=== PATIENT | female | born 1990 | race African-American/Black ===

== ENCOUNTER 2017-08-27 21:31 | Emergency (ER) | payer MEDICARE, MEDICAID ==
[~2017-08-27] VITALS: Ht 152.4 cm; Wt 67.1 kg
[2017-08-27 21:40] VITALS: BP 122/85
[2017-08-27] MEDS ORDERED: Lidocaine 1% 10mg/ml/Epi 0.005mg/ml 30ml vial INJ ONE (22:00)
[2017-08-27] MEDS ORDERED: CEPHALEXIN500 MG ORAL (22:17)
[2017-08-27 22:35] VITALS: BP 0/0
--- NOTE | 2017-08-28 03:50 | Emergency Room Report ---
History of Present Illness General Chief Complaint: Skin Rash/Abscess Source: Patient Present Illness HPI Patient is a 27-year-old female presented after increased left arm pit swelling. Patient reported having recently had a difficulty with increased pain to her left armpit. patient had been noted to have increased pain. She denies any numbness or weakness to her extremity. She reported having had recently used razor to the area. She denies any fever. Allergies: Coded Allergies: No Known Allergies (Unverified , 08/27/17) Patient History Past Medical History: see triage record Now: No Reviewed Nursing Documentation: PMH: Agreed; PSxH: Agreed Nursing Documentation-PMH Past Medical History: No Stated History Review of Systems All Other Systems: negative except mentioned in HPI Physical Exam Vital Signs Date Time Temp Pulse Resp B/P (MAP) Pulse Ox O2 Delivery O2 Flow Rate FiO2 08/27/17 21:35 98.4 90 18 122/85 99 Room Air 98.4 General Appearance: well appearing, no apparent distress Head: normocephalic, atraumatic ENT: hearing grossly normal, normal voice Neck: full range of motion, supple Respiratory: chest non-tender, lungs clear, normal breath sounds, no respiratory distress, speaking full sentences Cardiovascular #1: normal peripheral pulses, regular rate, rhythm, no edema Gastrointestinal: normal bowel sounds, non tender, soft, no mass Musculoskeletal: back normal, digits/nails normal, gait/station normal, no calf tenderness Neurologic: normal inspection, alert, oriented x3, responsive, normal gait Psychiatric: mood/affect normal Skin: no rash Procedures Incision and Drainage Incision and Drainage : Consent: Verbal Blade Size: 11 I & D Procedure: betadine prep, sterile drapes applied, sterile dressing applied Wound Location: axilla Wound's Depth, Shape: superficial Wound Length (cm): 1 Wound Explored: clean Anesthesia: Lidocaine w/ Epi Volume Anesthetic (ccs): 2 Patient Tolerated: Well Complications: None Medical Decision Making Diagnostic Impression: Primary Impression: Abscess of axilla, left ER Course Patient presented for left underarm abscess. The differential diagnosis included wasn't limited to hidradenitis, infected lymph node, abscess, among others. Patient has a benign exam and does not appear to require any further imaging or laboratory testing at this time. The patient was consented for incision and drainage. The axillary abscess was drained approximately 3 mL's of purulent material. The patient tolerated well. Patient is advised to have wound checked in 2 days. She is given prescription for oral antibiotics. Last Vital Signs Date Time Temp Pulse Resp B/P (MAP) Pulse Ox O2 Delivery O2 Flow Rate FiO2 08/27/17 22:35 0/0 08/27/17 21:40 98.4 90 18 99 Room Air 98.4 Disposition: HOME, SELF-CARE Condition: Stable Scripts Cephalexin* (KEFLEX*) 500 Mg Capsule 500 MG ORAL EVERY 6 HOURS, #28 CAP Prov: Jose Portillo MD 08/27/17 Referrals: [facility],REFERR[facility] (PCP) Patient Instructions: Abscess Additional Instructions: wound recheck in 2-3 days. Return if any fever worsening swelling or other concerns. Jose Portillo MD Aug 28, 2017 03:50
== END 2017-08-27 22:35 | disposition home or self-care (01) ==
LOC: EMR 21:48
DX: L02.412 Cutaneous abscess of left axilla (principal)
CPT/HCPCS: 10060; 99283

== ENCOUNTER 2017-08-31 14:12 | Emergency (ER) | payer MEDICARE, MEDICAID ==
[~2017-08-31] VITALS: Ht 157.5 cm; Wt 63.5 kg
[~2017-08-31 14:12] MED LIST: CEPHALEXIN500 MG ORAL
[2017-08-31 14:26] VITALS: BP 118/77
[2017-08-31] MEDS ORDERED: TYLENOL EXTRA500 MG ORAL (14:38)
--- NOTE | 2017-08-31 14:39 | Emergency Room Report ---
History of Present Illness General Chief Complaint: Wound Recheck/Suture Removal Source: Patient Present Illness HPI 27 yo female patient presented ER for wound check of abscess under her left axilla. Reports was recently seen in ER 3 days ago and had I and D performed. Reports symptoms of improved since that time. Reports taking antibiotics. Also complains of small abscess formation under right axilla similar to left since that time. Denies drainage. Denies fever, chest pain, shortness of breath, intractable vomiting, red streaking. denies other symptoms. Allergies: Coded Allergies: No Known Allergies (Unverified , 08/27/17) Patient History Past Medical History: see triage record Last Menstrual Period: 08/30/17 Now: No : 2 Para: 2 Reviewed Nursing Documentation: PMH: Agreed; PSxH: Agreed Nursing Documentation-PMH Past Medical History: No Stated History Review of Systems All Other Systems: negative except mentioned in HPI Physical Exam Vital Signs Date Time Temp Pulse Resp B/P (MAP) Pulse Ox O2 Delivery O2 Flow Rate FiO2 08/31/17 14:15 98.2 91 16 118/77 98 Room Air 98.2 Sp02 EP Interpretation: reviewed, normal General Appearance: well appearing, no apparent distress, alert, GCS 15, non- toxic Head: normocephalic, atraumatic Eyes: bilateral eye normal inspection, bilateral eye PERRL Neck: full range of motion Respiratory: lungs clear, normal breath sounds, no rhonchi, no respiratory distress, no accessory muscle use, no wheezing, speaking full sentences Cardiovascular #1: regular rate, rhythm, no edema Musculoskeletal: back normal, digits/nails normal, gait/station normal, normal range of motion, non-tender Neurologic: alert, oriented x3, responsive, motor strength/tone normal, sensory intact Psychiatric: mood/affect normal Skin: other - Left axilla: 1 cm healing abscess, no drainage, no erythema, no signs of infection; right axilla: less than 1 cm indurated abscess, does not come to a point, no drainage Medical Decision Making PA Attestation Dr. Eddy is my supervising Physician whom patient management has been discussed with. Diagnostic Impression: Primary Impression: Encounter for wound re-check Additional Impression: Abscess of right axilla ER Course Pt. presents to the ED c/o abscess and requesting wound check. Ddx considered but are not limited to rash, cellulitis, abscess, sebaceous cyst , carbuncle, folliculitis. Does not require imaging at this time. Vital signs: are WNL, pt. is afebrile ED INTERVENTIONS: previous chart reviewed, abscess under left axilla appears to be healing well, no erythema, no active drainage, patient reports pain symptoms improving, no red streaking or systemic symptoms such as fever. Patient also reports new abscess under right axilla, indurated, no drainage, no red streaking. Does not believe I&D at this time would be beneficial. Take antibiotics as previously instructed, take Tylenol for pain symptoms. Apply warm compresses. Adding Bactrim for added coverage and to cover for MRSA. follow-up with primary care provider to discuss further treatment and management. Wound check in 2-3 days, return to ER if symptoms worsen. do not shave armpits during this time, may be contributing to infections. DISCHARGE: -Rx provided for Tylenol -Rx provided for Bactrim At this time pt. is stable for d/c to home. Patient is resting comfortably, in no acute distress, nontoxic appearing. Will provide printed patient care instructions and any necessary prescriptions. Care plan and follow up instructions have been discussed with the patient prior to discharge. Patient instructed to follow-up with primary care provider in 2 - 3 days for wound recheck. Patient questions asked and answered. Patient reports understanding and agreement to treatment plan. ER precautions given. Patient instructed to return to ER immediately for any new or worsening of symptoms including but not limited to fever, worsening of pain symptoms, worsening of erythema, red streaking. - Please note that this Emergency Department Report was dictated using [employer] ground crew supervisor technology software, occasionally this can lead to erroneous entry secondary to interpretation by the dictation equipment. Last Vital Signs Date Time Temp Pulse Resp B/P (MAP) Pulse Ox O2 Delivery O2 Flow Rate FiO2 08/31/17 14:26 98.2 89 16 118/77 98 Room Air 98.2 Disposition: HOME, SELF-CARE Condition: Stable Scripts Trimethoprim/Sulfamethoxazole 160/800* (BACTRIM DS TABLET*) 1 Each Tablet 1 TAB ORAL TWICE A DAY for 7 Days, #14 TAB Prov: Scooter Arboleda P.ACruz 08/31/17 Acetaminophen* (TYLENOL EXTRA STRENGTH*) 500 Mg Tablet 500 MG ORAL Q8H PRN for Prn Headache/Temp > 101, #30 TAB 0 Refills Prov: Scooter Arboleda 08/31/17 Patient Instructions: Abscess, [id number], Wound Check Additional Instructions: Followup with primary care provider in 3 -5 days. Take medications as directed. Continue taking medications as previously instructed. Avoid shaving armpits. Patient questions asked and answered. ER precautions given, patient instructed to return to ER immediately for any new or worsening of symptoms including but not limited to fever, shortness of breath, intractable vomiting, red streaking, worsening of redness and swelling at site of infection. Scooter Arboleda Aug 31, 2017 14:39
[2017-08-31] MEDS ORDERED: BACTRIM DS TAB1 EAC1 ORAL (14:40)
[2017-08-31 14:59] VITALS: BP 118/77
== END 2017-08-31 15:03 | disposition home or self-care (01) ==
LOC: EMR 14:37
DX: Z48.00 Encounter for change or removal of nonsurgical wound dressing (principal); L02.412 Cutaneous abscess of left axilla; L02.411 Cutaneous abscess of right axilla
CPT/HCPCS: 99284

== ENCOUNTER 2018-01-27 22:34 | Emergency (ER) | payer MEDICARE, MEDICAID ==
[~2018-01-27] VITALS: Ht 160 cm; Wt 59.9 kg
[~2018-01-27 22:34] MED LIST changes: +BACTRIM DS TAB1 EAC1 ORAL; +TYLENOL EXTRA500 MG ORAL
[2018-01-27 23:00] VITALS: BP 118/74
[2018-01-27] MEDS ORDERED: PHENAZOPYRIDIN200 MG ORAL (23:11)
[2018-01-27] MEDS ORDERED: CEPHALEXIN500 MG ORAL (23:11)
--- NOTE | 2018-01-27 23:12 | Emergency Room Report ---
History of Present Illness General Chief Complaint: Female Urogenital Problems Source: Patient Present Illness HPI Is a 27 year female with no cerumen past medical history. She presents with chief complaint of dysuria frequency and urgency. Onset today. No hematuria. Worse with urination. Pain is 7 out of 10. Localized the pelvic area. No upper back pain. Allergies: Coded Allergies: No Known Allergies (Unverified , 08/27/17) Patient History Past Medical History: none, see triage record, old chart reviewed Past Surgical History: none Pertinent Family History: none Social History: Denies: smoking Last Menstrual Period: 01/18/18 Now: No : 2 Para: 2 Immunizations: other Reviewed Nursing Documentation: PMH: Agreed; PSxH: Agreed Nursing Documentation-PMH Past Medical History: No History, Except For Hx Asthma: Yes Review of Systems Eye: Denies: eye pain, blurred vision ENT: Denies: ear pain, nose congestion, throat swelling Respiratory: Denies: cough, shortness of breath Cardiovascular: Denies: chest pain, palpitations Gastrointestinal: Denies: abdominal pain, diarrhea, nausea, vomiting Genitourinary: Reports: dysuria, frequency, pain, urgency Musculoskeletal: Denies: back pain, joint pain Skin: Denies: rash Neurological: Denies: headache, numbness Endocrine: Denies: increased thirst, increased urine Hematologic/Lymphatic: Denies: easy bruising All Other Systems: negative except mentioned in HPI Physical Exam Vital Signs Date Time Temp Pulse Resp B/P (MAP) Pulse Ox O2 Delivery O2 Flow Rate FiO2 01/27/18 22:42 97.9 91 15 118/74 98 Room Air vitals normal Sp02 EP Interpretation: reviewed, normal General Appearance: well appearing, no apparent distress, alert Head: normocephalic, atraumatic Eyes: bilateral eye PERRL, bilateral eye EOMI ENT: hearing grossly normal, normal pharynx Neck: full range of motion, supple, no meningismus Respiratory: chest non-tender, lungs clear, normal breath sounds Cardiovascular #1: regular rate, rhythm, no murmur Gastrointestinal: normal bowel sounds, non tender, no mass, no organomegaly, no bruit, non-distended Musculoskeletal: back normal, gait/station normal, normal range of motion Psychiatric: mood/affect normal Skin: warm/dry Medical Decision Making Diagnostic Impression: Primary Impression: UTI (urinary tract infection) Qualified Codes: N30.00 - Acute cystitis without hematuria ER Course Patient presents with symptom consistent with UTI. No pyelonephritis. Dose of antibiotics given here. Last Vital Signs Date Time Temp Pulse Resp B/P (MAP) Pulse Ox O2 Delivery O2 Flow Rate FiO2 01/27/18 22:42 97.9 91 15 118/74 98 Room Air Status: improved Disposition: HOME, SELF-CARE Condition: Stable Scripts Phenazopyridine Hcl* (PYRIDIUM*) 200 Mg Tablet 200 MG ORAL THREE TIMES A DAY, #6 TAB 0 Refills Prov: Forest Lucia MD 01/27/18 Cephalexin* (KEFLEX*) 500 Mg Capsule 500 MG ORAL TID, #21 CAP Prov: Forest Lucia MD 01/27/18 Patient Instructions: Urinary Tract Infection Additional Instructions: Follow-up with your Dr. in 2-3 days of not better. Return if worse. Forest Lucia MD Jan 27, 2018 23:12
[2018-01-27 23:15] VITALS: BP 123/75
[2018-01-27] MEDS ORDERED: Phenazopyridine 200mg tab ORAL ONE (23:15)
[2018-01-27] MEDS ORDERED: Cephalexin 500mg cap ORAL ONE (23:15)
== END 2018-01-27 23:15 | disposition home or self-care (01) ==
LOC: EMR 23:00
DX: N30.00 Acute cystitis without hematuria (principal)
CPT/HCPCS: 87086; 99283

== ENCOUNTER 2018-04-24 06:20 | Emergency (ER) | payer MEDICARE, MEDICAID ==
[~2018-04-24] VITALS: Ht 157.5 cm; Wt 62.1 kg
[~2018-04-24 06:20] MED LIST changes: +PHENAZOPYRIDIN200 MG ORAL
[2018-04-24 06:46] VITALS: BP 130/85
--- NOTE | 2018-04-24 06:46 | NUR ---
ED Nurse Note: Pt c/o R earache this morning, pain 10/10. Pt also c/o been sick 3 days,runny nose and headache. upon ERMD inspection, stated the ear seems to be clogged with ear wax causing pain. pt vital signs are stable. pt pupiles are round and reactive to light.
--- NOTE | 2018-04-24 06:58 | Emergency Room Report ---
History of Present Illness General Chief Complaint: Earache Source: Patient Present Illness HPI 27-year-old female comes ER with right ear pain for 1 day, she also reports sneezing rhinorrhea and bitemporal headache for the past 4 days. She has not tried any medication for any of her symptoms, she denies tinnitus, hearing loss , vision complaints, fevers, any other symptoms. Allergies: Coded Allergies: No Known Allergies (Unverified , 08/27/17) Patient History Past Medical History: see triage record Last Menstrual Period: now Now: No Reviewed Nursing Documentation: PMH: Agreed; PSxH: Agreed Nursing Documentation-PMH Hx Asthma: Yes Review of Systems All Other Systems: negative except mentioned in HPI Physical Exam Vital Signs Date Time Temp Pulse Resp B/P (MAP) Pulse Ox O2 Delivery O2 Flow Rate FiO2 04/24/18 06:39 98.2 90 18 130/85 98 Room Air Sp02 EP Interpretation: reviewed, normal General Appearance: no apparent distress, alert, non-toxic Head: normocephalic Eyes: bilateral eye normal inspection, bilateral eye PERRL, bilateral eye EOMI ENT: normal ENT inspection, hearing grossly normal, normal pharynx, no angioedema, normal voice, TMs + canals normal - R TM with mild erythema, no effusion, uvula midline, moist mucus membranes, nasal congestion, other - +pain with pulling on pinna Neck: normal inspection, full range of motion, supple, thyroid normal, no meningismus, no bony tend, supple/symm/no masses Respiratory: chest non-tender, lungs clear, normal breath sounds, chest symmetrical, palpation of chest normal Cardiovascular #1: normal peripheral pulses, regular rate, rhythm Cardiovascular #2: 2+ radial (R), 2+ radial (L) Gastrointestinal: normal inspection, non tender, soft, no mass, no guarding, no rebound Rectal: deferred Genitourinary: normal inspection, no CVA tenderness Musculoskeletal: back normal, gait/station normal, normal range of motion, non- tender, no calf tenderness Neurologic: alert, responsive, stallion keeper III-XII nml as tested, motor strength/tone normal, sensory intact, normal gait, speech normal Psychiatric: judgement/insight normal, memory normal, mood/affect normal Skin: normal color, no rash, warm/dry, normal turgor Lymphatic: no adenopathy Medical Decision Making Diagnostic Impression: Primary Impression: Earache, right Additional Impression: Otitis media ER Course Patient with signs and symptoms consistent with right-sided otitis media and probable sinus infection, will discharge with antibiotics, ibuprofen, PMD follow -up in 2-3 days Last Vital Signs Date Time Temp Pulse Resp B/P (MAP) Pulse Ox O2 Delivery O2 Flow Rate FiO2 04/24/18 06:46 98.2 79 18 130/85 98 Room Air Disposition: HOME, SELF-CARE Condition: Stable LETICIA SOLORZANO M.D Apr 24, 2018 06:58
[2018-04-24] MEDS ORDERED: Ketorolac 60mg Inj IM ONE (07:00)
[2018-04-24] MEDS ORDERED: AMOXICILLIN875 MG PO (07:00)
[2018-04-24] MEDS ORDERED: IBUPROFEN600 MG ORAL (07:00)
[2018-04-24 07:14] VITALS: BP 132/84
--- NOTE | 2018-04-24 07:16 | NUR ---
ED Nurse Note: Pt cleared by Health Care Provider for discharge. DC instructions/prescriptions given and explained to pt and verbalized understanding of teachings. All medical devices such as ID band removed. Pt AAO x4, ambulatory and left with all personal belongings. pt is instructed to follow up with primary MD as soon as possible. pt is insturcted to return and seek medical attention if reoccurance of symptoms. pt has left with all DC notes and has been able to teach back all instructions.
== END 2018-04-24 07:50 | disposition home or self-care (01) ==
LOC: EMR 07:35
DX: H66.91 Otitis media, unspecified, right ear (principal); J45.909 Unspecified asthma, uncomplicated
CPT/HCPCS: 96372; 99283

== ENCOUNTER 2018-06-25 19:51 | Emergency (ER) | payer MEDICARE, MEDICAID ==
[~2018-06-25] VITALS: Ht 160 cm; Wt 61.2 kg
[~2018-06-25 19:51] MED LIST changes: +AMOXICILLIN875 MG PO; +IBUPROFEN600 MG ORAL
[2018-06-25 20:30] VITALS: BP 121/75
--- NOTE | 2018-06-25 20:30 | NUR ---
ED Nurse Note: pt came to ed from home c/o brown vaginal discharge for 1 week after menstrual cycle
--- NOTE | 2018-06-25 20:57 | Emergency Room Report ---
History of Present Illness General Chief Complaint: Female Urogenital Problems Source: Patient Present Illness HPI Patient present with complaints of vaginal discharge Reports that just before her menstrual cycle started she had noticed some discharge purchased a 3 day Monistat She was using it during her menstrual cycle Reports that she had done better during her menstrual cycle however now noticed some increased discharge vaginally Denies any pelvic pain denies any abdominal pain Denies any vomiting denies any fevers or rash denies any recent sexual contact Allergies: Coded Allergies: No Known Allergies (Unverified , 08/27/17) Patient History Past Medical History: see triage record Pertinent Family History: none Last Menstrual Period: 06/18/18 Now: No Reviewed Nursing Documentation: PMH: Agreed; PSxH: Agreed Nursing Documentation-PMH Past Medical History: No Stated History Hx Asthma: Yes Review of Systems All Other Systems: negative except mentioned in HPI Physical Exam Vital Signs Date Time Temp Pulse Resp B/P (MAP) Pulse Ox O2 Delivery O2 Flow Rate FiO2 06/25/18 20:23 98.4 88 16 121/75 96 Room Air Sp02 EP Interpretation: reviewed, normal General Appearance: well appearing, no apparent distress Head: normocephalic, atraumatic Eyes: bilateral eye PERRL, bilateral eye EOMI ENT: hearing grossly normal, normal pharynx, TMs + canals normal, uvula midline Neck: full range of motion, supple, no meningismus, no bony tend Respiratory: lungs clear, normal breath sounds, no rhonchi, no respiratory distress, no retraction, no accessory muscle use Cardiovascular #1: normal peripheral pulses, regular rate, rhythm, no edema, no gallop, no JVD, no murmur Gastrointestinal: normal bowel sounds, non tender, soft, no mass, no organomegaly, non-distended, no guarding, no hernia, no pulsatile mass, no rebound Genitourinary: no CVA tenderness Musculoskeletal: normal inspection Neurologic: oriented x3, responsive, transport truck driver III-XII nml as tested, motor strength/ tone normal, sensory intact Psychiatric: mood/affect normal Skin: normal color, no rash, warm/dry, palpation normal Lymphatic: normal inspection, no adenopathy Medical Decision Making Diagnostic Impression: Primary Impression: Vaginitis ER Course Multiple differentials and consideration Patient otherwise has a fairly benign medical evaluation Abdomen is soft Denies any pelvic pain my suspicion for PID is low Patient's history and clinical exam is consistent with likely vaginitis patient is provided initial conservative outpatient trial and will return with any changes Labs Test 06/25/18 20:25 Urine Color Yellow Urine Appearance Slightly cloudy Urine pH 5 (4.5-8.0) Urine Specific [place] 1.025 (1.005-1.035) Urine Protein 2+ (NEGATIVE) Urine Glucose (UA) Negative (NEGATIVE) Urine Ketones 1+ (NEGATIVE) Urine Blood 2+ (NEGATIVE) Urine Nitrite Negative (NEGATIVE) Urine Bilirubin Negative (NEGATIVE) Urine Urobilinogen 1 MG/DL (0.0-1.0) Urine Leukocyte Esterase 3+ (NEGATIVE) Urine RBC 2-4 /HPF (0 - 2) Urine WBC 5-10 /HPF (0 - 2) Urine Squamous Epithelial Cells Few /LPF (NONE/OCC) Urine Bacteria Few /HPF (NONE) Urine Trichomonas Few /HPF (NONE) Urine HCG, Qualitative Negative (NEGATIVE) Last Vital Signs Date Time Temp Pulse Resp B/P (MAP) Pulse Ox O2 Delivery O2 Flow Rate FiO2 06/25/18 20:23 98.4 88 16 121/75 96 Room Air Status: improved Disposition: HOME, SELF-CARE Condition: Improved Scripts Metronidazole* (METROGEL-VAGINAL*) 70 Gm Gel.w.appl 1 APPL VAGIN EVERY 12 HOURS for 7 Days, #70 GM Prov: Anegl Eddy DO 06/25/18 Nitrofurantoin Monohyd/M-Cryst* (MACROBID 100 MG*) 100 Mg Capsule 100 MG ORAL EVERY 12 HOURS for 5 Days, CAP Prov: Angel Eddy DO 06/25/18 Additional Instructions: Patient is provided with the discharge instructions notified to follow up with primary doctor in the next 2-3 days otherwise return to the er with any worsening symptoms. Please note that this report is being documented using [employer] technology. This can lead to erroneous entry secondary to incorrect interpretation by the dictating instrument. Angel Eddy DO Jun 25, 2018 20:57
[2018-06-25 21:10] LABS: APPEARANCE,URINE SLIGHTLY CLOUDY; BILIRUBIN, URINE NEGATIVE (NEGATIVE); GLUCOSE, URINE (UA) NEGATIVE (NEGATIVE); KETONES,URINE 1+ (NEGATIVE); LEUKOCYTE ESTERASE ,URINE 3+ (NEGATIVE); NITRITE,URINE NEGATIVE (NEGATIVE); PH,URINE 5 (4.5-8.0); PROTEIN,URINE 2+ (NEGATIVE); UROBILINOGEN,URINE 1 MG/DL (0.0-1.0)
[2018-06-25 21:13] LABS: COLOR,URINE YELLOW
[2018-06-25] MEDS ORDERED: NITROFURANTOIN100 M2 ORAL (21:25)
[2018-06-25] MEDS ORDERED: METROGEL-VAGINA70 G1 VAGIN (21:25)
[2018-06-25 21:31] VITALS: BP 121/75
--- NOTE | 2018-06-25 21:31 | NUR ---
Note karlo in EDM - 06/25/18 at 2253 by BRENNAN ER DISCHARGE NOTE: Patient is cleared to be discharged per ERMD, pt is aox4, on room air, with stable vital signs. pt was given dc and prescription instructions, pt was able to verbalize understanding, pt id band removed. pt is able to ambulate with steady gait. pt took all belongings.
--- NOTE | 2018-06-25 21:34 | NUR ---
ER DISCHARGE NOTE: Patient is cleared to be discharged per ERMD, pt is aox4, on room air, with stable vital signs. pt was given dc and prescription instructions, pt was able to verbalize understanding, pt id band removed pt is able to ambulate with steady gait. pt took all belongings.
== END 2018-06-25 21:34 | disposition home or self-care (01) ==
LOC: EMR 20:30
DX: N76.0 Acute vaginitis (principal)
CPT/HCPCS: 81003; 81025; 99283

== ENCOUNTER 2018-12-10 22:11 | Emergency (ER) | payer MEDICARE, MEDICAID ==
[~2018-12-10] VITALS: Ht 160 cm; Wt 62.1 kg
[~2018-12-10 22:11] MED LIST changes: +METROGEL-VAGINA70 G1 VAGIN; +NITROFURANTOIN100 M2 ORAL
[2018-12-10] MEDS ORDERED: NKM (22:20)
[2018-12-10] MEDS ORDERED: Azithromycin 250mg tab ORAL ONE (22:45)
[2018-12-10] MEDS ORDERED: Lidocaine 1% MPF 10mg/ml 5ml INJ ONE (22:45)
[2018-12-10 23:00] VITALS: BP 128/70
[2018-12-10] MEDS ORDERED: Fluconazole 150mg tab ORAL ONE (23:00)
[2018-12-10] MEDS ORDERED: Lidocaine 1% Plain 30 ml INJ ONE (23:00)
--- NOTE | 2018-12-10 23:20 | NUR ---
ED Nurse Note: pt walked in c/o left 4th finger pain and swelling x 1 wk. pt also c/o vaginal discharge since 11/29/18, denies foul odor nor db, reports small amount. will wait for further order.
[2018-12-10 23:24] LABS: APPEARANCE,URINE SLIGHTLY CLOUDY; BILIRUBIN, URINE NEGATIVE (NEGATIVE); GLUCOSE, URINE (UA) NEGATIVE (NEGATIVE); KETONES,URINE NEGATIVE (NEGATIVE); LEUKOCYTE ESTERASE ,URINE 1+ (NEGATIVE); NITRITE,URINE NEGATIVE (NEGATIVE); PH,URINE 5 (4.5-8.0); PROTEIN,URINE 1+ (NEGATIVE); UROBILINOGEN,URINE 1 MG/DL (0.0-1.0)
--- NOTE | 2018-12-10 23:41 | Emergency Room Report ---
History of Present Illness General Chief Complaint: Female Urogenital Problems Source: Patient Present Illness HPI 28-year-old female presents with left fourth digit pain and swelling x1 week after utilizing a waist cutter, no fever no chills, no numbness no tingling, patient states the swelling is gotten worse no known aggravating relieving factors severity is mild, symptoms are constant patient presents for evaluation she also wants treatment for possible STDs. Allergies: Coded Allergies: PENICILLINS (Verified Allergy, Unknown, 12/10/18) Patient History Past Medical History: see triage record Last Menstrual Period: 11/29/18 Now: No Reviewed Nursing Documentation: PMH: Agreed; PSxH: Agreed Nursing Documentation-PMH Past Medical History: No History, Except For Hx Asthma: Yes Review of Systems All Other Systems: negative except mentioned in HPI Physical Exam Vital Signs Date Time Temp Pulse Resp B/P (MAP) Pulse Ox O2 Delivery O2 Flow Rate FiO2 12/10/18 22:15 98.1 88 14 128/70 (89) 100 Room Air General Appearance: well appearing, no apparent distress Head: normocephalic, atraumatic ENT: hearing grossly normal, normal voice Neck: full range of motion, supple Respiratory: no respiratory distress, speaking full sentences Genitourinary: other - Vaginal exam deferred her kids are in the room and there is sleeping and she does not want examination she will follow-up with her DEVELOPMENT CONSULTANT Musculoskeletal: other - Left upper extremity: 2+ radial pulses, swelling along the ulnar aspect of the fourth distal digit Neurologic: alert, normal gait Psychiatric: mood/affect normal Skin: no rash Procedures Incision and Drainage Incision and Drainage : Consent: Verbal Site: Left ring finger ulnar side Blade Size: 11 I & D Procedure: betadine prep Wound's Depth, Shape: superficial Wound Explored: clean Irrigated w/ Saline (ccs): 5 Anesthesia: 1% Lidocaine Volume Anesthetic (ccs): 5 Patient Tolerated: Well Complications: None Medical Decision Making Diagnostic Impression: Primary Impression: Felon of digit Additional Impression: Vaginal discharge ER Course 28-year-old female presents with felon of the left ring finger ulnar aspect, I& D conducted, neurovascular exam was intact afterwards radial median ulnar nerve. Patient was given ceftriaxone, azithromycin, counseled patient to follow-up with her DEVELOPMENT CONSULTANT as scheduled for formal testing Safe sex counseling was given Disposition home with return precautions Last Vital Signs Date Time Temp Pulse Resp B/P (MAP) Pulse Ox O2 Delivery O2 Flow Rate FiO2 12/10/18 22:15 98.1 88 14 128/70 (89) 100 Room Air Disposition: HOME, SELF-CARE Condition: Stable Scripts Metronidazole* (FLAGYL*) 500 Mg Tablet 500 MG ORAL BID for 7 Days, #14 TAB Prov: Shashi Green MD 12/10/18 Cephalexin* (CEPHALEXIN*) 500 Mg Tablet 500 MG ORAL EVERY 6 HOURS, #20 CAP Prov: Shashi Green MD 12/10/18 Referrals: [employer] [facility],REFERRING (PCP) [facility]. [facility] Patient Instructions: Bacterial Vaginosis, [id number], Fingertip Infection Additional Instructions: The patient was provided with discharge instructions, notified to follow-up with a primary care doctor and or specialist in the next 24-48 hours, and to return to the ED if they have worsening of their symptoms. Please note that this report is being documented using [employer] technology. This can lead to erroneous entry secondary to incorrect interpretation by the dictating instrument. Shashi Green MD Dec 10, 2018 23:40
[2018-12-10] MEDS ORDERED: CEPHALEXIN500 M1 ORAL (23:46)
[2018-12-10] MEDS ORDERED: METRONIDAZOLE500 MG ORAL (23:46)
[2018-12-10 23:52] LABS: COLOR,URINE YELLOW
--- NOTE | 2018-12-11 00:01 | NUR ---
ED Nurse Note: wound care done per ermd order, pt cleared to be d/c per ermd, pt discharge and aftercare instruction provided w/ prescription, pt education done via discussion and handout, pt advised to follow up with pcp or return to ed if changes in condition, vss, ambulatory w/ steady gait, pt left w/ all belongings.
[2018-12-11 00:02] VITALS: BP 120/73
== END 2018-12-11 00:05 | disposition home or self-care (01) ==
LOC: EMR 22:45
DX: L03.012 Cellulitis of left finger (principal); N89.8 Other specified noninflammatory disorders of vagina; J45.909 Unspecified asthma, uncomplicated; Z88.0 Allergy status to penicillin
CPT/HCPCS: 10060; 81003; 81025; 87086; 87491; 87590; 96372; 96374; 99284; J0696; J2001

== ENCOUNTER 2019-01-03 14:42 | Emergency (ER) | payer MEDICARE, MEDICAID ==
[~2019-01-03] VITALS: Ht 162.6 cm; Wt 61.2 kg
[~2019-01-03 14:42] MED LIST changes: +CEPHALEXIN500 M1 ORAL; +METRONIDAZOLE500 MG ORAL; +NKM
[2019-01-03 14:51] VITALS: BP 118/74
--- NOTE | 2019-01-03 14:51 | NUR ---
ED Nurse Note: PT CAME IN DUE TO HEADCAHE AND ''FEELING OF DEHYDRATION'' X 4 DAYS. ABLE TO TOLERATE ORAL INTAKE. NO COUGHING, FEVER AND CHILLS. AAO X4, AND AMBULATORY.
[2019-01-03] MEDS ORDERED: Omnipaque-300 100ml vial INJ PRN (15:15)
--- NOTE | 2019-01-03 15:37 | NUR ---
ED Nurse Note: COLLECTED BLOOD/URINE THEN SENT.
[2019-01-03 16:34] LABS: EOSINOPHILS % (AUTO) 1.4 % (0.0-3.0); HEMOGLOBIN 10.2 G/DL (12.0-16.0); LYMPHOCYTES % (AUTO) 31.8 % (20.0-45.0); MEAN CORPUSCULAR VOLUME 87 FL (80-99); MONOCYTES % (AUTO) 7.2 % (1.0-10.0); NEUTROPHILS % (AUTO) 58.7 % (45.0-75.0); PLATELET COUNT 167 K/UL (150-450); RED BLOOD COUNT 3.66 M/UL (4.20-5.40); RED CELL DISTRIBUTION WIDTH 11.8 % (11.6-14.8); WHITE BLOOD COUNT 5.7 K/UL (4.8-10.8)
[2019-01-03 16:42] LABS: APPEARANCE,URINE CLEAR; BILIRUBIN, URINE NEGATIVE (NEGATIVE); GLUCOSE, URINE (UA) NEGATIVE (NEGATIVE); KETONES,URINE NEGATIVE (NEGATIVE); LEUKOCYTE ESTERASE ,URINE 2+ (NEGATIVE); NITRITE,URINE NEGATIVE (NEGATIVE); PH,URINE 6 (4.5-8.0); PROTEIN,URINE 1+ (NEGATIVE); UROBILINOGEN,URINE 1 MG/DL (0.0-1.0)
[2019-01-03 16:43] LABS: COLOR,URINE YELLOW
[2019-01-03 16:57] LABS: ANION GAP 11 mmol/L (5-15); BLOOD UREA NITROGEN 11 mg/dL (7-18); CALCIUM 8.8 MG/DL (8.5-10.1); CARBON DIOXIDE 27 MMOL/L (21-32); CHLORIDE 109 MMOL/L (98-107); CREATININE 0.6 MG/DL (0.55-1.30); POTASSIUM 3.4 MMOL/L (3.5-5.1); SODIUM 147 MMOL/L (136-145)
[2019-01-03 17:02] LABS: ALANINE AMINOTRANSFERASE 30 U/L (12-78); ALBUMIN 3.5 G/DL (3.4-5.0); ALBUMIN/GLOBULIN RATIO 0.9 (1.0-2.7); ALKALINE PHOSPHATASE 50 U/L (46-116); ASPARTATE AMINO TRANSFERASE 23 U/L (15-37); BILIRUBIN,TOTAL 0.3 MG/DL (0.2-1.0)
[2019-01-03 17:56] VITALS: BP 124/78
--- NOTE | 2019-01-03 17:57 | Diagnostic Imaging Report ---
EXAM: CT Abdomen and Pelvis With Intravenous Contrast CLINICAL HISTORY: PAIN TECHNIQUE: Axial computed tomography images of the abdomen and pelvis with intravenous contrast. CTDI is 14 mGy and DLP is 809 mGy-cm. One or more of the following dose reduction techniques were used: automated exposure control, adjustment of the mA and or kV according to patient size, use of iterative reconstruction technique. COMPARISON: No relevant prior studies available. FINDINGS: Limitations: Limited due to motion. Lung bases: Unremarkable. ABDOMEN: Liver: Nonspecific periportal edema. Gallbladder and bile ducts: Unremarkable. No calcified stones. Pancreas: Unremarkable. Spleen: Unremarkable. Adrenals: Unremarkable. Kidneys and ureters: Unremarkable. No hydronephrosis. Stomach and bowel: Mildly thickened bowel which may be underdistention versus enteritis. No bowel obstruction. PELVIS: Appendix: Appendix not clearly identified. Bladder: Mildly thickened bladder which may be underdistention versus cystitis. Reproductive: IUD in the lower uterus concerning for malpositioning. Possible mild pelvic stranding, correlate clinically for PID or cystitis. ABDOMEN and PELVIS: Intraperitoneal space: No free air. Bones joints: No acute fracture. Soft tissues: Unremarkable. Vasculature: Unremarkable. Lymph nodes: Unremarkable. IMPRESSION: 1. Nonspecific periportal edema. 2. Mildly thickened bowel which may be underdistention versus enteritis. No bowel obstruction. 3. IUD in the lower uterus concerning for malpositioning. Possible mild pelvic stranding, correlate clinically for PID or cystitis.
[2019-01-03] MEDS ORDERED: Lidocaine 1% MPF 10mg/ml 5ml INJ ONE (18:15)
--- NOTE | 2019-01-03 18:32 | Emergency Room Report ---
History of Present Illness General Chief Complaint: General Complaint Source: Patient Present Illness HPI 28-year-old female with history of recurrent vaginitis here complaining of 4 days of frontal headache, nausea, and epigastric abdominal pain. Patient denies any vomiting, diarrhea, constipation, blood in his stool. Reports that due to being nauseated has not been able to eat much however has been keeping hydrated. Denies cough and congestion, and all other URI symptoms. Patient also complains of continuous pruritus in the vaginal canal that started yesterday. Reports that she was seen by her primary care for vaginitis over a month ago. Patient had a IUD checked by primary care however according to the primary doctor the IUD was misplaced and was referred to a bait digger for IUD. Patient denies any vaginal discharge any urinary frequency or dysuria. Reports that the pruritus and is on the labia and not inside the vaginal canal. Reports that she is Gustavo taken ceftriaxone, Keflex, Flagyl, Diflucan for symptom relief with minimal relief. Reports having pruritus secondary to penicillin family as well as after the accident however agrees to be given the injection of ceftriaxone and given Claritin for symptom relief at the ED as patient is driving after discharge. Has not taken any other medication for symptom relief. Last menstrual period 2 weeks ago regular. Has not been sexually active since over a month ago. Denies head trauma, loss of consciousness, dizziness, blurred vision, photophobia, neck stiffness, fever and chills Allergies: Coded Allergies: PENICILLINS (Verified Allergy, Unknown, 12/10/18) Patient History Past Medical History: see triage record Past Surgical History: unable to obtain Pertinent Family History: none Last Menstrual Period: 12/31/2018 Now: No Immunizations: UTD Reviewed Nursing Documentation: PMH: Agreed; PSxH: Agreed Nursing Documentation-PMH Past Medical History: No Stated History Hx Asthma: Yes Review of Systems All Other Systems: negative except mentioned in HPI Physical Exam Vital Signs Date Time Temp Pulse Resp B/P (MAP) Pulse Ox O2 Delivery O2 Flow Rate FiO2 01/03/19 14:51 98.2 81 16 118/74 (89) 100 Room Air Sp02 EP Interpretation: reviewed, normal General Appearance: no apparent distress, alert, GCS 15, non-toxic Head: normocephalic, atraumatic Eyes: bilateral eye normal inspection, bilateral eye PERRL ENT: hearing grossly normal, normal pharynx, no angioedema, normal voice Neck: full range of motion, supple/symm/no masses Respiratory: chest non-tender, lungs clear, normal breath sounds, no rhonchi, no wheezing, speaking full sentences Cardiovascular #1: regular rate, rhythm, no edema, no murmur Gastrointestinal: non tender, soft, no mass, no organomegaly, no peritonitis, no bruit Genitourinary: normal inspection, no CVA tenderness Musculoskeletal: back normal, gait/station normal, normal range of motion, non- tender, no calf tenderness Neurologic: alert, oriented x3, responsive, motor strength/tone normal, sensory intact, speech normal Psychiatric: judgement/insight normal, memory normal, mood/affect normal, no suicidal/homicidal ideation Skin: no rash Lymphatic: no adenopathy Medical Decision Making PA Attestation Diagnosis and treatment plans were reviewed and discussed with my supervising physician Dr. Green Diagnostic Impression: Primary Impression: Gastroenteritis Additional Impressions: Malpositioned IUD PID (pelvic inflammatory disease) Vaginitis ER Course 28-year-old female with history of recurrent vaginitis here complaining of 4 days of frontal headache, nausea, and epigastric abdominal pain. Patient denies any vomiting, diarrhea, constipation, blood in his stool. Reports that due to being nauseated has not been able to eat much however has been keeping hydrated. Denies cough and congestion, and all other URI symptoms. Patient also complains of continuous pruritus in the vaginal canal that started yesterday. Reports that she was seen by her primary care for vaginitis over a month ago. Patient had a IUD checked by primary care however according to the primary doctor the IUD was misplaced and was referred to a bait digger for IUD. Patient denies any vaginal discharge any urinary frequency or dysuria. Reports that the pruritus and is on the labia and not inside the vaginal canal. Reports that she is Gustavo taken ceftriaxone, Keflex, Flagyl, Diflucan for symptom relief with minimal relief. Reports having pruritus secondary to penicillin family as well as after the accident however agrees to be given the injection of ceftriaxone and given Claritin for symptom relief at the ED as patient is driving after discharge. Has not taken any other medication for symptom relief. Last menstrual period 2 weeks ago regular. Has not been sexually active since over a month ago. Denies head trauma, loss of consciousness, dizziness, blurred vision, photophobia, neck stiffness, fever and chills Ddx considered but are not limited to: appendicitis, cholecystis, gastritis, gastroenteritis, UTI, pyelonephritis, SBO, diverticulitis, influenza with GI manifestation, [place], complication with , vaginitis, malpositioned IUD, PID Vital signs: are WNL, pt. is afebrile H&PE are most consistent with: Possible PID secondary to malpositioned IUD, gastroenteritis presumed to viral, vaginitis ORDERS: abdominal CT, abdominal pain set, Zofran, Diflucan, Lotrisone cream, doxycycline ED INTERVENTIONS: NS bolus, Zofran, ceftriaxone DISCHARGE: At this time pt. is stable for d/c to home. Will provide printed patient care instructions, and any necessary prescriptions. Care plan and follow up instructions have been discussed with the patient prior to discharge. Patient to follow-up care for post exam as well as IUD removal as it is guarding in position and to be checked by primary care as well as BILLET ASSEMBLER. Patient agrees to be treated for possible PID. Patient did not show any allergic reaction to the ED secondary to ceftriaxone. Advised to return to the emergency room if worsening symptoms. CT/MRI/US Diagnostic Results CT/MRI/US Diagnostic Results : Imaging Test Ordered: Abdominal pelvic CT with contrast Impression IMPRESSION: 1. Nonspecific periportal edema. 2. Mildly thickened bowel which may be underdistention versus enteritis. No bowel obstruction. 3. IUD in the lower uterus concerning for malpositioning. Possible mild pelvic stranding, correlate clinically for PID or cystitis. Last Vital Signs Date Time Temp Pulse Resp B/P (MAP) Pulse Ox O2 Delivery O2 Flow Rate FiO2 01/03/19 17:56 98.5 84 16 124/78 99 Room Air Disposition: HOME, SELF-CARE Condition: Stable Scripts Diphenhydramine Hcl* (BENADRYL*) 25 Mg Capsule 25 MG ORAL Q8HR PRN for Itching, #15 CAP Prov: Ernesto Muniz 01/03/19 Ondansetron (Zofran) 4 Mg Tablet 4 MG ORAL Q6H PRN for Nausea & Vomiting, #10 TAB Prov: Ernesto Muniz 01/03/19 Doxycycline Hyclate (DOXYCYCLINE HYCLATE) 100 Mg Tablet 100 MG PO BID for 7 Days, #14 TAB Prov: Ernesto Muniz 01/03/19 Fluconazole (FLUCONAZOLE) 100 Mg Tablet 150 MG ORAL ONCE, #1 TAB 0 Refills Prov: Ernesto Muniz 01/03/19 Clotrimazole/Betamethasone Dip* (LOTRISONE CREAM*) 15 Gm Cream..g. 2 GM TP TWICE A DAY, #15 GM 0 Refills Prov: Ernesto Muniz 01/03/19 Referrals: NON PHYSICIAN (PCP) Patient Instructions: Pelvic Inflammatory Disease, Vaginitis, [id number], Viral Gastroenteritis, Adult, [id number] Additional Instructions: Follow-up with your BILLET ASSEMBLER for pelvic exam and have IUD removed. You are being treated for possible pelvic inflammatory disease secondary to possible sexually transmitted disease. Take medication as directed, if worsening symptoms return to emergency room. Increase oral hydration, keep a BRAT diet. Ernesto Muniz Jan 03, 2019 18:32
[2019-01-03] MEDS ORDERED: DOXYCYCLINE HY100 M6 PO (18:35)
[2019-01-03] MEDS ORDERED: FLUCONAZOLE100 MG ORAL (18:35)
[2019-01-03] MEDS ORDERED: ZOFRAN4 M1 ORAL (18:35)
[2019-01-03] MEDS ORDERED: LOTRISONE CREAM15 GM TP (18:35)
[2019-01-03] MEDS ORDERED: BENADRYL25 MG ORAL (18:36)
[2019-01-03 18:49] VITALS: BP 132/79
--- NOTE | 2019-01-03 18:49 | NUR ---
ER DISCHARGE NOTE: Patient is cleared to be discharged per PA, pt is aox4, on room air, with stable vital signs. pt was given dc and prescription instructions, pt was able to verbalize understanding, pt id band removed without complications. pt is able to ambulate with steady gait. pt took all belongings and left with her family member.
== END 2019-01-03 18:49 | disposition home or self-care (01) ==
LOC: EMR 15:15
DX: K52.9 Noninfective gastroenteritis and colitis, unspecified (principal); N73.9 Female pelvic inflammatory disease, unspecified; N76.0 Acute vaginitis; J45.909 Unspecified asthma, uncomplicated; Z88.0 Allergy status to penicillin; T83.89XA Other specified complication of genitourinary prosthetic devices, implants and grafts, initial encounter; Y84.8 Other medical procedures as the cause of abnormal reaction of the patient, or of later complication, without mention of misadventure at the time of the procedure; Y92.9 Unspecified place or not applicable
CPT/HCPCS: 36415; 74177; 80053; 81001; 81025; 85025; 96361; 96372; 96374; 99284; J0696; J2405; Q9967; J7030

== ENCOUNTER 2019-03-15 18:05 | Emergency (ER) | payer MEDICARE, MEDICAID ==
[~2019-03-15] VITALS: Ht 162.6 cm; Wt 63.0 kg
[~2019-03-15 18:05] MED LIST changes: +BENADRYL25 MG ORAL; +DOXYCYCLINE HY100 M6 PO; +FLUCONAZOLE100 MG ORAL; +LOTRISONE CREAM15 GM TP; +ZOFRAN4 M1 ORAL
[2019-03-15 19:17] VITALS: BP 125/86
--- NOTE | 2019-03-15 19:29 | NUR ---
HAND-OFF: Report given to Osvaldo Stokes RN.
--- NOTE | 2019-03-15 19:30 | NUR ---
ED Nurse Note: received patient from peterson ascencio. patient resting comfortably in bed with no acute distress. accompanied by family members. medicated patient; tolerated well.
[2019-03-15] MEDS ORDERED: Fluconazole 150mg tab ORAL ONE (20:00)
[2019-03-15] MEDS ORDERED: Bactrim-DS 1 tab ORAL ONE (20:00)
--- NOTE | 2019-03-15 20:18 | Emergency Room Report ---
History of Present Illness General Chief Complaint: Female Urogenital Problems Source: Patient Present Illness HPI 28-year-old female with no segment past medical history here complaining of 3 days of vaginal pruritus and pain after shaving the area. Obvious possible Staphylococcus infection noted. Patient is also on her menstrual. And reports that she has been wearing a pad that also irritates the area. Denies any dysuria, urinary symptoms including frequency, hematuria. Denies fever and chills, chest pain, shortness of breath, nausea vomiting, palpitation, no other associated symptoms. Has been applying [id number] clotrimazole minimal relief. Allergies: Coded Allergies: PENICILLINS (Verified Allergy, Unknown, 12/10/18) Patient History Past Medical History: see triage record Past Surgical History: unable to obtain Pertinent Family History: none Last Menstrual Period: 03/06/2019 Now: No Immunizations: UTD Reviewed Nursing Documentation: PMH: Agreed; PSxH: Agreed Nursing Documentation-PMH Past Medical History: No History, Except For Hx Asthma: Yes Review of Systems All Other Systems: negative except mentioned in HPI Physical Exam Vital Signs Date Time Temp Pulse Resp B/P (MAP) Pulse Ox O2 Delivery O2 Flow Rate FiO2 03/15/19 19:17 98.4 85 16 125/86 (99) 98 Room Air Sp02 EP Interpretation: reviewed, normal General Appearance: no apparent distress, alert, GCS 15, non-toxic Head: normocephalic, atraumatic Eyes: bilateral eye normal inspection, bilateral eye PERRL ENT: hearing grossly normal, normal pharynx, no angioedema, normal voice Neck: full range of motion, supple/symm/no masses Respiratory: chest non-tender, lungs clear, normal breath sounds, no rhonchi, no wheezing, speaking full sentences Cardiovascular #1: regular rate, rhythm, no edema, no murmur Gastrointestinal: non tender, soft Rectal: deferred Genitourinary: no CVA tenderness, other - labial erythema Musculoskeletal: normal inspection, back normal Psychiatric: judgement/insight normal Skin: other - labial erythema, folliculitis Lymphatic: no adenopathy Medical Decision Making PA Attestation All diagnoses and treatment plans were reviewed and discussed with my supervising physician Dr. Joseph Diagnostic Impression: Primary Impression: Folliculitis Additional Impression: Vaginitis ER Course 28-year-old female with no segment past medical history here complaining of 3 days of vaginal pruritus and pain after shaving the area. Obvious possible Staphylococcus infection noted. Patient is also on her menstrual. And reports that she has been wearing a pad that also irritates the area. Denies any dysuria, urinary symptoms including frequency, hematuria. Denies fever and chills, chest pain, shortness of breath, nausea vomiting, palpitation, no other associated symptoms. Has been applying [id number] clotrimazole minimal relief. Ddx considered but are not limited to : Folliculitis, cyst, vaginitis, UTI Vital signs: are WNL, pt. is afebrile H&PE are most consistent with: Folliculitis, vaginitis most likely due to yeast infection ORDERS: Bactrim DS, Lotrisone cream ED INTERVENTIONS: Diflucan, Bactrim DS DISCHARGE: At this time pt. is stable for d/c to home. Will provide printed patient care instructions, and any necessary prescriptions. Care plan and follow up instructions have been discussed with the patient prior to discharge. Patient to follow-up with resource management planner, take medication as directed, wear cotton only underwear as well as limited hygiene. Last Vital Signs Date Time Temp Pulse Resp B/P (MAP) Pulse Ox O2 Delivery O2 Flow Rate FiO2 03/15/19 19:17 98.4 16 125/86 98 Room Air 03/15/19 19:17 85 Disposition: HOME, SELF-CARE Condition: Stable Scripts Clotrimazole/Betamethasone Dip* (LOTRISONE CREAM*) 15 Gm Cream..g. 2 GM TP TWICE A DAY, #15 GM 0 Refills Prov: Ernesto Muniz 03/15/19 Trimethoprim/Sulfamethoxazole 160/800* (BACTRIM DS TABLET*) 1 Each Tablet 1 TAB ORAL TWICE A DAY for 7 Days, #14 TAB Prov: Ernesto Muniz 03/15/19 Patient Instructions: Folliculitis, Vaginitis Ernesto Muniz Mar 15, 2019 20:18
[2019-03-15] MEDS ORDERED: LOTRISONE CREAM15 GM TP (20:19)
[2019-03-15] MEDS ORDERED: BACTRIM DS TAB1 EAC1 ORAL (20:19)
[2019-03-15 20:20] VITALS: BP 125/86
--- NOTE | 2019-03-15 20:20 | NUR ---
ER DISCHARGE NOTE: Patient is cleared to be discharged per ERMD, pt is aox4, on room air, with stable vital signs. accompanied by family members. pt was given dc and prescription instructions, pt was able to verbalize understanding, pt id band removed. pt is able to ambulate with steady gait. pt took all belongings.
== END 2019-03-15 20:20 | disposition home or self-care (01) ==
LOC: EMR 20:20
DX: L73.9 Follicular disorder, unspecified (principal); N76.0 Acute vaginitis; Z88.0 Allergy status to penicillin
CPT/HCPCS: 99282

== ENCOUNTER 2019-03-27 00:58 | Emergency (ER) | payer MEDICARE, MEDICAID ==
[~2019-03-27] VITALS: Ht 160 cm; Wt 61.2 kg
[2019-03-27 01:15] VITALS: BP 119/80
--- NOTE | 2019-03-27 01:15 | NUR ---
ED Nurse Note: Pt walked into ED from home for c/o allergic reaction onset yesterday. Pt states she ate hot cheetoh puffs yesterday and soon after had upper lip swelling and diffuse hives. Pt upper lip is not swollen at this time, diffuse hives on body are noted. Pt is aaox4, no cardiac or respiratory distress noted, abmulatory with steady gait.
[2019-03-27] MEDS ORDERED: EPIPEN 2-P0.3 MG/0.3 IM (01:17)
--- NOTE | 2019-03-27 01:17 | Emergency Room Report ---
History of Present Illness General Chief Complaint: Allergic Reaction Source: Patient Present Illness HPI 28-year-old female no past medical history no surgical history presents with lip swelling after eating when hot Cheeto puff at approximately 5:30 PM she then had hives no shortness of breath no tongue swelling no throat closure, aggravating factors hot Cheeto puff, alleviating factors none, severity was mild , she also endorsed rash of hives, no chest pain or shortness of breath no nausea no vomiting no abdominal pain patient presents for evaluation symptoms have so far been improving Allergies: Coded Allergies: PENICILLINS (Verified Allergy, Unknown, 12/10/18) Patient History Past Medical History: see triage record Last Menstrual Period: 02/28/20 Now: No : 5 Para: 2 Reviewed Nursing Documentation: PMH: Agreed; PSxH: Agreed Nursing Documentation-PMH Past Medical History: No Stated History Hx Asthma: Yes Review of Systems All Other Systems: negative except mentioned in HPI Physical Exam Vital Signs Date Time Temp Pulse Resp B/P (MAP) Pulse Ox O2 Delivery O2 Flow Rate FiO2 03/27/19 01:00 97.9 77 16 119/80 (93) 100 Room Air Sp02 EP Interpretation: reviewed, normal General Appearance: well appearing, no apparent distress, alert Head: normocephalic, atraumatic Eyes: bilateral eye PERRL, bilateral eye EOMI ENT: uvula midline, moist mucus membranes Neck: supple, thyroid normal, supple/symm/no masses Respiratory: lungs clear, no respiratory distress, no retraction, no accessory muscle use Cardiovascular #1: normal peripheral pulses, regular rate, rhythm, no edema, no gallop, no murmur Gastrointestinal: non tender, soft, no guarding, no rebound Musculoskeletal: normal inspection Neurologic: alert, oriented x3 Psychiatric: mood/affect normal Skin: warm/dry, other - Hives on back Medical Decision Making Diagnostic Impression: Primary Impression: Allergic reaction Qualified Codes: T78.40XA - Allergy, unspecified, initial encounter ER Course 28-year-old female presents most likely with allergic reaction no signs of anaphylaxis will provide EpiPen Disposition home with return precautions follow-up with PCP Last Vital Signs Date Time Temp Pulse Resp B/P (MAP) Pulse Ox O2 Delivery O2 Flow Rate FiO2 03/27/19 01:00 97.9 77 16 119/80 (93) 100 Room Air Disposition: HOME, SELF-CARE Condition: Stable Scripts Epinephrine (Epipen 2-Iam) 0.3 Mg/0.3 Ml Auto.injct 0.3 MG IM ONCE PRN for anaphylaxis, #1 EA Prov: Shashi Green MD 03/27/19 Referrals: [facility] Patient Instructions: Food Allergy Additional Instructions: The patient was provided with discharge instructions, notified to follow-up with a primary care doctor and or specialist in the next 24-48 hours, and to return to the ED if they have worsening of their symptoms. Please note that this report is being documented using [employer] technology. This can lead to erroneous entry secondary to incorrect interpretation by the dictating instrument. Shashi Green MD Mar 27, 2019 01:17
[2019-03-27 01:20] VITALS: BP 119/80
--- NOTE | 2019-03-27 01:20 | NUR ---
ER DISCHARGE NOTE: Patient is cleared to be discharged per ERMD, pt is aox4, on room air, with stable vital signs. pt was given dc and prescription instructions, pt was able to verbalize understanding, pt id band removed. pt is able to ambulate with steady gait. pt took all belongings.
== END 2019-03-27 01:20 | disposition home or self-care (01) ==
LOC: EMR 01:00
DX: T78.1XXA Other adverse food reactions, not elsewhere classified, initial encounter (principal); J45.909 Unspecified asthma, uncomplicated; X58.XXXA Exposure to other specified factors, initial encounter; Z88.0 Allergy status to penicillin
CPT/HCPCS: 99282

== ENCOUNTER 2019-09-08 10:10 | Emergency (ER) | payer MEDICARE, MEDICAID ==
[~2019-09-08] VITALS: Ht 160 cm; Wt 63.5 kg
[~2019-09-08 10:10] MED LIST changes: +EPIPEN 2-P0.3 MG/0.3 IM
--- NOTE | 2019-09-08 10:26 | NUR ---
ED Nurse Note: Pt walked into ED for lower back pain 09/17 since yesterday. Pt states she can't sit because of the pain. She denies numbness/tingling. Pt is alert and ox4, ambulatory. She started boxing this month.
[2019-09-08 10:28] VITALS: BP 131/83
[2019-09-08] MEDS ORDERED: Methocarbamol 500mg tab ORAL ONE (10:30)
[2019-09-08] MEDS ORDERED: Ketorolac 60mg Inj IM ONE (10:30)
--- NOTE | 2019-09-08 10:37 | Emergency Room Report ---
History of Present Illness General Chief Complaint: Lower Back Pain or Injury Source: Patient Present Illness HPI Patient is a 29-year-old female past medical history of asthma who presents to the ER complaining of right middle back pain. Patient states that she started boxing 1 month ago. She states that last night she started having right-sided lateral back pain which she thinks is a spasm. She states that she has no chest pain or shortness of breath. She denies any cough. She denies any fever or chills. She denies any changes to her bowel or bladder habits. She denies any focal weakness. She denies any abdominal pain. She denies any IV drug use or rash. 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 Patient History Last Menstrual Period: 08/24/2019 Now: No Reviewed Nursing Documentation: PMH: Agreed; PSxH: Agreed Nursing Documentation-PMH Hx Asthma: Yes Review of Systems All Other Systems: negative except mentioned in HPI Physical Exam Vital Signs Date Time Temp Pulse Resp B/P (MAP) Pulse Ox O2 Delivery O2 Flow Rate FiO2 09/07/ 10:19 98.2 100 20 125/87 (100) 99 Room Air Sp02 EP Interpretation: reviewed, normal General Appearance: no apparent distress, alert, GCS 15, non-toxic Head: normocephalic, atraumatic Eyes: bilateral eye normal inspection, bilateral eye PERRL ENT: hearing grossly normal, normal pharynx, no angioedema, normal voice Neck: full range of motion, supple/symm/no masses Respiratory: chest non-tender, lungs clear, normal breath sounds, no respiratory distress, no retraction, no accessory muscle use, speaking full sentences Cardiovascular #1: regular rate, rhythm, no edema Gastrointestinal: normal bowel sounds, non tender, soft, non-distended, no guarding, no rebound Rectal: deferred, other - No saddle anesthesia, able to squeeze butt cheeks Genitourinary: no CVA tenderness Musculoskeletal: normal range of motion, other - Right middle lateral back pain very superficial tenderness when palpating the latissimus dorsi no midline tenderness no step-offs Neurologic: alert, motor strength/tone normal, oriented x3, sensory intact, responsive, speech normal Psychiatric: no suicidal/homicidal ideation Reflexes: 2+ bicep (R), 2+ bicep (L), 2+ knee (R), 2+ knee (L) Skin: no rash Lymphatic: no adenopathy Medical Decision Making Diagnostic Impression: Primary Impression: Muscle spasm of back ER Course Patient given Toradol as well as Robaxin. On reevaluation she states that the sharp spasm has subsided. Patient has no chest pain or shortness of breath. Pain is palpable on the right side along her latissimus dorsi. After discussing risks and benefits of further diagnostics, treatment plans, as well as indications for and risks of admission, the patient is agreeable to being discharged home. I have explained that their evaluation and treatment in the emergency department today is an important step towards them achieving better health but that their evaluation today is not intended to replace further evaluation and treatment by a physician in their local clinic. I have explained that while the current findings suggest no immediate life threatening emergency they will require further evaluation and treatment by a physician of their choice in their area. They understand that it will be necessary for them to review the final reports of their ED visit with their clinic physician. We have reviewed indications for return to the Emergency Department. I have explained that additional time may need to pass and/or additional testing as an outpatient may be necessary before a definitive diagnosis can be made. They tell me they are willing to follow up as instructed within the timeframe I recommend. They appear to understand what we discussed. Additionally they understand that if they are unable to be seen by an outpatient physician they are welcome, and in fact should, return to the Emergency Department for a repeat evaluation. The patient is stable at time of discharge. Last Vital Signs Date Time Temp Pulse Resp B/P (MAP) Pulse Ox O2 Delivery O2 Flow Rate FiO2 09/08/19 10:28 98.2 85 18 131/83 98 Room Air Disposition: HOME, SELF-CARE Condition: Stable - improved Scripts Methocarbamol* (ROBAXIN-500*) 500 Mg Tablet 500 MG ORAL TID PRN for For Pain, #20 TAB 0 Refills Prov: Bisi Brady M.D. 09/08/19 Ibuprofen* (MOTRIN*) 600 Mg Tablet 600 MG ORAL Q6H PRN for For Pain, #30 TAB 0 Refills Prov: Bisi Brady M.D. 09/08/19 Additional Instructions: The patient was provided with discharge instructions, notified to follow-up with a primary care doctor and or specialist in the next 24-48 hours, and to return to the ED if they have worsening of their symptoms. Please note that this report is being documented using DRAGON technology. This can lead to erroneous entry secondary to incorrect interpretation by the dictating instrument. Bisi Brady M.D. Sep 08, 2019 10:37
[2019-09-08 11:08] LABS: APPEARANCE,URINE CLEAR; BILIRUBIN, URINE NEGATIVE (NEGATIVE); COLOR,URINE YELLOW; GLUCOSE, URINE (UA) NEGATIVE (NEGATIVE); KETONES,URINE NEGATIVE (NEGATIVE); LEUKOCYTE ESTERASE ,URINE NEGATIVE (NEGATIVE); NITRITE,URINE NEGATIVE (NEGATIVE); PH,URINE 6 (4.5-8.0); PROTEIN,URINE NEGATIVE (NEGATIVE); UROBILINOGEN,URINE NORMAL MG/DL (0.0-1.0)
[2019-09-08] MEDS ORDERED: ROBAXIN-500MG ORAL (11:14)
[2019-09-08] MEDS ORDERED: IBUPROFEN600 M1 ORAL (11:14)
--- NOTE | 2019-09-08 11:20 | NUR ---
ER DISCHARGE NOTE: Patient is cleared to be discharged per ERMD, pt is aox4, on room air, with stable vital signs. pt was given dc and prescription instructions, pt was able to verbalize understanding, pt id band removed. pt is able to ambulate with steady gait. pt took all belongings. Pt educated on back pain care.
[2019-09-08 11:21] VITALS: BP 135/82
== END 2019-09-08 12:10 | disposition home or self-care (01) ==
LOC: EMR 12:01
DX: M62.830 Muscle spasm of back (principal); Z88.0 Allergy status to penicillin
CPT/HCPCS: 81003; 81025; 96372; 99283